=== PATIENT | male | born 1970 | race Caucasian/White ===

== ENCOUNTER 2025-04-23 11:08 | Outpatient (AMB) | payer BC, SELFPAY ==
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
[2025-04-23 11:20] VITALS: BP 133/77; PULSE 57; TEMP 36.7; O2SAT 95; BMI 32.9
--- OUTSIDE RECORDS SUMMARY | 2025-04-23 14:50 | XMS_ITS ---
Author Name [facility] Organization [facility] Care Team Organization Name Specialty Phone Email Start Date End Da bj [facility] 03/15/20222023
== END 2025-04-23 12:13 | disposition home or self-care (01) ==
PROVIDERS: PCP Student in an Organized Health Care Education/Training Program; Visit Provider Student in an Organized Health Care Education/Training Program
DX: E03.9 Hypothyroidism, unspecified (principal); R06.83 Snoring; R53.83 Other fatigue; L30.9 Dermatitis, unspecified; E66.811 Obesity, class 1; Z23 Encounter for immunization

== ENCOUNTER → 2025-04-23 11:08 | Outpatient (BNVA) | payer BC, SELFPAY | PROVIDERS: Visit Provider Student in an Organized Health Care Education/Training Program | DX: Z76.89 Persons encountering health services in other specified circumstances (principal); E03.9 Hypothyroidism, unspecified; R06.83 Snoring; R53.83 Other fatigue; L30.9 Dermatitis, unspecified; E66.811 Obesity, class 1; Z68.32 Body mass index [BMI] 32.0-32.9, adult; Z79.899 Other long term (current) drug therapy; Z28.21 Immunization not carried out because of patient refusal; Z13.31 Encounter for screening for depression; Z13.39 Encounter for screening examination for other mental health and behavioral disorders | CPT/HCPCS: 90471; 96127 ==

== ENCOUNTER 2025-04-25 09:40 | Outpatient (REF) | payer BC, SELFPAY ==
[2025-04-25 15:12] LABS: Appearance Urine Clear; Glucose Urine UA Negative (Negative); MANUAL DIFF FLAG NO; PH 7.0 (5.0-9.0); Specific Gravity - Urine 1.020 (1.005-1.025)
[2025-04-25 15:30] LABS: Hematocrit 47.3 % (42.0-52.0); Hemoglobin 15.5 g/dl (14.0-18.0); Imm Gran Abs Auto 0.04 X10*3/uL (0.00-0.03); Imm Gran Pct Auto 0.4 % (0.0-0.4); Lymphocytes Absolute Auto 2.7 X10*3/uL (1.2-4.9); Mean Corpuscular HGB Conc 32.8 g/dl (31.0-36.0); Mean Corpuscular Hemoglobin 28.1 pg (27.0-33.0); Mean Corpuscular Volume 85.7 fL (80.0-98.0); NRBC Abs Auto 0.000 X10*3/uL (0.0-0.012); NRBC Pct Auto 0.0 /100WBC (0.0-0.2); Platelet Count 325 X10*3/uL (160-400); Red Blood Count 5.52 X10*6/uL (4.60-5.80); White Blood Count 10.8 X10*3/uL (4.8-10.8)
[2025-04-25 16:19] LABS: Alanine Aminotransferase 38 U/L (0-40); Albumin Level 4.7 g/dL (3.5-5.0); Alkaline Phosphatase 88 U/L (39-117); Anion Gap 12 (12-20); Aspartate Amino Transferase 36 U/L (5-37); Blood Urea Nitrogen 15 mg/dL (9-16); Calcium 9.6 mg/dL (8.4-10.2); Carbon Dioxide 28 mmol/L (22-29); Chloride 106 mmol/L (96-108); Cholesterol 184 mg/dL (<200); Estimated Glomerular Filt Rate > 60; HDL Cholesterol 38 mg/dL (>40); Magnesium 2.3 mg/dL (1.6-2.6); Potassium 4.5 mmol/L (3.3-5.1); Sodium 141 mmol/L (135-145); Total Protein 7.9 g/dL (6.5-8.0); Triglycerides 129 mg/dL (<150)
[2025-04-25 16:24] LABS: Folate 11.0 ng/mL (> or = 4.0); Vitamin B12 287 pg/mL (200-900)
[2025-04-25 16:50] LABS: Free T4 (Free Thyroxine) 0.90 ng/dL (0.71-1.85)
[2025-04-28 03:53] LABS: Syphilis Screen Nonreactive (Nonreactive)
[2025-04-28 04:34] LABS: HBS Num1 0.00 mIU/mL (0-7.99); HBsAGNum1 0.45 S/CO (0.00-0.99); HIV Num 1 0.06 S/CO (0.00-0.99); Hepatitis B Surface Antigen Negative (Negative); ~HepC Num1 0.16 S/CO (0.00-0.79); ~Hepatitis B Surface Antibody NONREACTIVE (Nonreactive); ~Hepatitis C Antibody Nonreactive (Nonreactive)
[2025-04-30 13:28] LABS: Testosterone, Free 39.0 pg/mL (35.0-155.0)
[2025-04-30 14:39] LABS: Vitamin D 25-OH, D2 <4 ng/mL; Vitamin D 25-OH, D3 30 ng/mL; Vitamin D 25-OH, Total 30 ng/mL (30-100)
== END 2025-04-25 09:41 | disposition home or self-care (01) ==
LOC: HO.HKASLDS 09:40
PROVIDERS: PCP Student in an Organized Health Care Education/Training Program; Visit Provider Student in an Organized Health Care Education/Training Program
DX: Z13.89 Encounter for screening for other disorder (principal); Z13.1 Encounter for screening for diabetes mellitus; Z13.21 Encounter for screening for nutritional disorder; Z13.29 Encounter for screening for other suspected endocrine disorder
CPT/HCPCS: 36415; 80053; 80061; 81003; 82306; 82607; 82746; 83036; 83735; 84402; 84403; 84439; 84443; 85025; 86706; 86780; 86803; 87340; 87389